=== PATIENT | male | born 1990 | race Hispanic/Latino ===

== ENCOUNTER 2018-06-20 16:28 | Emergency (ER) | payer SELFPAY ==
[2018-06-20 17:42] LABS: RAPID GROUP A STREP NEGATIVE (NEGATIVE)
[2018-06-20] MEDS ORDERED: ACETAMINOPHEN EXTRA STRENGTH 500 MG TABLET ONE (17:58)
[2018-06-20] MEDS ORDERED: KETOROLAC TROMETHAMINE 60 MG/2 ML VIAL ONE (17:58)
== END 2018-06-20 18:40 | disposition home or self-care (01) ==
LOC: EDH 16:28
DX: J09.X2 Influenza due to identified novel influenza A virus with other respiratory manifestations (principal); Z72.0 Tobacco use
CPT/HCPCS: 87804 ×2; 87880; 96372; 99283; J1885

== ENCOUNTER 2020-01-23 19:20 | Emergency (ER) | payer OTHER ==
[2020-01-23] MEDS ORDERED: IBUPROFEN 200 MG TAB ONE (19:49)
[2020-01-23] MEDS ORDERED: IBUPROFEN 400 MG TABLET ONE (19:49)
[2020-01-23 20:29] LABS: RAPID GROUP A STREP NEGATIVE (NEGATIVE)
[2020-01-23 21:12] LABS: APPEARANCE,URINE Clear (CLEAR); BILIRUBIN,URINE Negative (NEGATIVE); COLOR,URINE Yellow (YELLOW); GLUCOSE, URINE (UA) Negative (NEGATIVE); KETONES,URINE Negative (NEGATIVE); LEUKOCYTE ESTERASE ,URINE Negative (NEGATIVE); NITRATE,URINE Negative (NEGATIVE); OCCULT BLOOD,URINE Negative (NEGATIVE); PH,URINE 6.5 (5.0-8.0); PROTEIN,URINE Negative (NEGATIVE); UROBILINOGEN,URINE 0.2 mg/dL (0.2-1.0)
== END 2020-01-23 22:47 | disposition home or self-care (01) ==
LOC: EDH 19:20
DX: B34.9 Viral infection, unspecified (principal); Z20.828 Contact with and (suspected) exposure to other viral communicable diseases; Z72.0 Tobacco use
CPT/HCPCS: 71045; 81003; 87426; 87804 ×2; 87880; 93005; 99285; U0003